=== PATIENT | female | born 1975 | race Caucasian/White ===

== ENCOUNTER 2024-10-21 07:02 | Outpatient (CLI) | payer OTHER, SELFPAY ==
--- NOTE | ~2024-10-21 | MR_ITS ---
MRI of the right shoulder Technique: Axial proton-density fat-sat images, coronal proton density fat-sat and T2 fat-sat images, and sagittal T1-weighted and T2 fat-sat images were acquired. Clinical History: Pain Findings: No significant degenerative changes AC joint. Coracoclavicular, coracoacromial, and coracoh umeral ligaments are intact. Suspected focal low signal lesion at the distal rotator cuff, suggestive of calcific tendinitis. Ther e is mild surrounding edema or tendinosis of the rotator cuff tendons. No partial or full-thickness t ear of the supraspinatus or full-thickness tendon seen. Subscapularis tendon intact. Tendon of the lo ng head of the biceps is intact. No labral tear identified. Inferior glenohumeral ligament is intact. No significant degenerative change of the glenohumeral join t. There is fluid distention of the subacromial/subdeltoid bursa with probable low signal deposits wi thin the bursa, which could reflect calcifications. No other muscle atrophy or edema evident. Impression: Findings suspicious for calcific tendinitis of the distal supraspinatus/of intrasinus tendon with ass ociated subacromial/subdeltoid bursitis. Consider plain radiographic correlation as indicated. Sugges tion of calcific densities or loose bodies in the subacromial/subdeltoid bursa. Reviewed, dictated and finalized at [facility]. Impression: Findings suspicious for calcific tendinitis of the distal supraspinatus/of intr asinus tendon with associated subacromial/subdeltoid bursitis. Consider plain r adiographic correlation as indicated. Suggestion of calcific densities or loose bodies in the subacromial/subdeltoid bursa.
== END 2024-10-21 07:03 | disposition home or self-care (01) ==
LOC: MICIMG 07:03
PROVIDERS: PCP Nurse Practitioner Family; Visit Provider Nurse Practitioner Family
DX: M25.511 Pain in right shoulder (principal); M25.611 Stiffness of right shoulder, not elsewhere classified; R93.6 Abnormal findings on diagnostic imaging of limbs
CPT/HCPCS: 73221